=== PATIENT | male | born 1995 | race Two or more races ===

== ENCOUNTER 2016-10-31 17:12 | Emergency (ER) | payer OTHER, SELFPAY ==
[2016-10-31] MEDS ORDERED: ALBUTEROL SULFATE 2.5 MG/0.5 ML INH NEB SOLN NEB ONE (17:30)
[2016-10-31] MEDS ORDERED: NS 1,000 ML IV ONE (17:30)
[2016-10-31 17:43] LABS: BASO % 0.2 % (0.0-1.0); EOS # 0.2 K/mm3 (0.0-0.50); EOS % 1.7 % (0.0-3.0); LARGE UNSTAINED CELL # 0.2 K/mm3 (0.0-0.4); LARGE UNSTAINED CELL % 1.4 % (0.0-4.0); LYMPH % 28.3 % (24.0-44.0); MEAN CORPUSCULAR HEMOGLOBIN 32.1 pg (27.0-33.0); MEAN CORPUSCULAR HGB CONC 34.3 g/dl (32.0-36.5); MEAN CORPUSCULAR VOLUME 93.6 fl (80.0-96.0); MONO # 0.7 K/mm3 (0.0-0.8); MONO % 4.8 % (0.0-5.0); NEUTROPHILS % 63.6 % (36.0-66.0); PLATELET COUNT, AUTOMATED 300 k/mm3 (150-450); RED CELL DISTRIBUTION WIDTH 12.4 % (11.5-14.5); WHITE BLOOD COUNT 14.2 K/mm3 (4.0-10.0)
--- NOTE | 2016-10-31 18:00 | REPUSA ---
CLINICAL HISTORY: Syncope. TECHNIQUE: Multiple axial brain CT scan sections were obtained from base to vertex without contrast a dministration. COMMENTS: The study shows normal configuration of sella turcica. There are no intra or extra-axial collections. There is no mass effect or midline shift. There is no evidence of hematoma formation. No hydrocephal us is present. No abnormal calcifications are noted. No significant abnormalities are seen either in the posterior fossa or supratentorial compartment. The sinuses and mastoid air cells are patent. IMPRESSION: No evidence of acute intracranial pathology. Thank you for your kind referral of this patient.
[2016-10-31 18:12] LABS: ANION GAP 8 MEQ/L (8-16); BLOOD UREA NITROGEN 11 MG/DL (7-18); CALCIUM LEVEL 8.8 MG/DL (8.5-10.1); CARBON DIOXIDE LEVEL 26 MEQ/L (21-32); CHLORIDE LEVEL 106 MEQ/L (98-107); CREATININE FOR GFR 0.81 MG/DL (0.70-1.30); GLOMERULAR FILTRATION RATE > 60.0 (>60); GLUCOSE, FASTING 97 MG/DL (70-105); POTASSIUM SERUM 3.2 MEQ/L (3.5-5.1); SODIUM LEVEL 140 MEQ/L (136-145)
[2016-10-31 18:20] VITALS: BP 122/69
[2016-10-31] MEDS ORDERED: POTASSIUM CHLORIDE 10 MEQ SR TABLET PO ONE (18:45)
--- NOTE | 2016-11-01 08:07 | REP ---
CHEST, SINGLE VIEW: There is no evidence of acute infiltrate. No pleural effusion is seen. The heart is normal in size. The mediastinal silhouette is unremarkable. The visualized osseous structures are intact. IMPRESSION: No acute pulmonary disease. Signed by Jayden Lafleur MD 11/01/2016 12:21 P
--- NOTE | 2016-11-01 20:58 | ECGEPIP ---
Stationary ECG Study [facility] - ED Test Date: 2016-10-31 Pat Name: RICHARD HURT Department: Room: - Gender: M [employer]: ne : 1995 Requested By: EUSEBIO Paz Order Number: [id number] Reading MD: Dick Mahmood Measurements Intervals [place] Rate: 67 P: 44 NV: 167 QRS: 60 QRSD: 104 T: 47 QT: 366 QTc: 388 Interpretive Statements SINUS RHYTHM U WAVE NO OLD ECG FOR COMPARISON Electronically Signed On 11-01-2016 20:57:49 EDT by Dick Mahmood
== END 2016-10-31 18:56 | disposition home or self-care (01) ==
LOC: EDBD 17:12 → M ED 18:46
DX: R55 Syncope and collapse (principal); J45.909 Unspecified asthma, uncomplicated; F17.200 Nicotine dependence, unspecified, uncomplicated

== ENCOUNTER → 2017-08-03 | Outpatient (REF) | payer BC | LOC: M SFHCLERA 18:31 | DX: J02.9 Acute pharyngitis, unspecified (principal) ==

== ENCOUNTER → 2017-08-03 | Outpatient (CLI) | payer BC | LOC: M LRY 18:00 | DX: J02.9 Acute pharyngitis, unspecified (principal) ==

== ENCOUNTER 2018-01-17 08:16 | Emergency (ER) | payer OTHER, BC ==
[2018-01-17] MEDS: DERMABOND TOPICAL SKIN ADHESIVE TOP (09:00)
[2018-01-17] MEDS: PERCOCET 5MG/325MG TAB PO (09:25)
[2018-01-17] MEDS: ADACEL/BOOSTRIX VACCINE (DIPHTH/PERTUSS/ACELL/TETANUS)0.5ML SYR (90715) IM (09:27)
== END 2018-01-17 10:14 | disposition home or self-care (01) ==
LOC: M ED 08:16
DX: S51.811A Laceration without foreign body of right forearm, initial encounter (principal); W26.8XXA Contact with other sharp object(s), not elsewhere classified, initial encounter; Y92.89 Other specified places as the place of occurrence of the external cause; F17.210 Nicotine dependence, cigarettes, uncomplicated
CPT/HCPCS: 90715

== ENCOUNTER 2018-01-18 17:19 | Emergency (ER) | payer OTHER, BC ==
[2018-01-18] MEDS: BACTRIM 160MG/800MG DS TAB PO (18:38)
[2018-01-18] MEDS: NORCO, ANEXSIA 5/325MG TABLET (HYDROcodone/ACETAMINOPHEN) PO (18:38)
== END 2018-01-18 18:45 | disposition home or self-care (01) ==
LOC: M ED 17:19
DX: L08.9 Local infection of the skin and subcutaneous tissue, unspecified (principal); S51.811S Laceration without foreign body of right forearm, sequela; F17.210 Nicotine dependence, cigarettes, uncomplicated
CPT/HCPCS: 99282

== ENCOUNTER 2019-01-30 10:03 | Emergency (ER) | payer BC, OTHER ==
[~2019-01-30] VITALS: Ht 162.6 cm; Wt 74.4 kg
[~2019-01-30 10:03] MED LIST: BACT800T5 PO; HYDR-3715 PO; IBUP-1022 PO
[2019-01-30] MEDS ORDERED: LIDOCAINE 2% MDV 20 ML VIAL SC ONE (10:30)
[2019-01-30] MEDS ORDERED: ACETAMINOPHEN 500 MG TAB PO ONE (11:30)
[2019-01-30] MEDS ORDERED: KEFL500C17 PO (12:00)
[2019-01-30 12:04] VITALS: BP 123/78
[2019-01-30] MEDS ORDERED: NEOSPORIN OINT 0.9 GM PKT (FLOOR STOCK) TOP ONE (12:15)
--- NOTE | 2019-01-31 07:12 | REP ---
REASON: Pain after trauma. COMPARISON: None. There is a tiny volar plate fracture arising from the distal phalanx of the first digit. Electronically Signed by Dale Adam DO 01/31/2019 09:34 A
== END 2019-01-30 12:18 | disposition home or self-care (01) ==
LOC: M ED 10:03
DX: S62.521A Displaced fracture of distal phalanx of right thumb, initial encounter for closed fracture (principal); S61.011A Laceration without foreign body of right thumb without damage to nail, initial encounter; W26.8XXA Contact with other sharp object(s), not elsewhere classified, initial encounter; Y92.89 Other specified places as the place of occurrence of the external cause; Y99.0 Civilian activity done for income or pay; J45.909 Unspecified asthma, uncomplicated; F17.210 Nicotine dependence, cigarettes, uncomplicated

== ENCOUNTER 2020-02-29 17:14 | Emergency (ER) | payer OTHER ==
[~2020-02-29] VITALS: Ht 162.6 cm; Wt 68.0 kg
[~2020-02-29 17:14] MED LIST changes: +KEFL500C17 PO
[2020-02-29 17:17] VITALS: BP 164/96
== END 2020-02-29 18:09 | disposition home or self-care (01) ==
LOC: M ED 17:14
DX: F43.0 Acute stress reaction (principal)

== ENCOUNTER 2020-10-06 10:40 | Emergency (ER) | payer OTHER, SELFPAY ==
[~2020-10-06] VITALS: Ht 165.1 cm; Wt 74.7 kg
--- NOTE | 2020-10-06 11:09 | REP ---
INDICATION: TRAUMA. COMPARISON: None TECHNIQUE: Four views FINDINGS: No acute fracture or destructive osseous lesion. Bandage material is seen dressing a soft tissue defect along the lateral aspect of the distal 2nd digit. IMPRESSION: No osseous abnormality. <Electronically signed by Dale Adam > 10/06/20 [id number]
[2020-10-06] MEDS ORDERED: LIDOCAINE 2% MDV 20ML VIAL SC ONE (12:15)
[2020-10-06 13:19] VITALS: BP 142/80
== END 2020-10-06 13:40 | disposition home or self-care (01) ==
LOC: M ED 10:40
DX: S61.211A Laceration without foreign body of left index finger without damage to nail, initial encounter (principal); W26.8XXA Contact with other sharp object(s), not elsewhere classified, initial encounter; Y92.9 Unspecified place or not applicable; Y93.9 Activity, unspecified; Y99.0 Civilian activity done for income or pay

== ENCOUNTER 2021-02-18 13:05 | Emergency (ER) | payer SELFPAY ==
[~2021-02-18] VITALS: Ht 162.6 cm; Wt 67.2 kg
[2021-02-18 13:22] VITALS: BP 135/89
== END 2021-02-18 15:32 | disposition left against medical advice (07) ==
LOC: M ED 13:05
DX: Z53.21 Procedure and treatment not carried out due to patient leaving prior to being seen by health care provider (principal)

== ENCOUNTER 2022-02-18 10:01 | Emergency (ER) | payer OTHER, SELFPAY ==
[~2022-02-18] VITALS: Ht 165.1 cm; Wt 66.4 kg
[2022-02-18] MEDS ORDERED: ACETAMINOPHEN 500 MG TAB PO ONE (12:15)
[2022-02-18] MEDS ORDERED: LIDOCAINE 1% MDV 20ML VIAL SC ONE (12:25)
[2022-02-18] MEDS ORDERED: cefTRIAXone SOD 1GM VIAL (J0696 PER 250MG) IM ONE (13:20)
[2022-02-18] MEDS ORDERED: LIDOCAINE 1% SDV 5ML VIAL DILUENT ONE (13:20)
[2022-02-18] MEDS ORDERED: CEPH500C PO (13:30)
[2022-02-18] MEDS ORDERED: PERC5TAB12 PO (13:35)
[2022-02-18 13:44] VITALS: BP 132/79
== END 2022-02-18 14:14 | disposition home or self-care (01) ==
LOC: M ED 10:01
DX: S62.663B Nondisplaced fracture of distal phalanx of left middle finger, initial encounter for open fracture (principal); W23.0XXA Caught, crushed, jammed, or pinched between moving objects, initial encounter; J45.909 Unspecified asthma, uncomplicated; F17.200 Nicotine dependence, unspecified, uncomplicated
CPT/HCPCS: 12002; 73130; 96372; 99283; J0696

== ENCOUNTER → 2022-03-02 | Outpatient (CLI) | payer OTHER ==
[~2022-03-02] MED LIST changes: +CEPH500C PO; +PERC5TAB12 PO
== END ==
LOC: M SOG 09:29
PROVIDERS: ATTEND Orthopaedic Surgery
DX: S62.633B Displaced fracture of distal phalanx of left middle finger, initial encounter for open fracture (principal)

== ENCOUNTER → 2022-03-23 | Outpatient (CLI) | payer OTHER | LOC: M SOG 08:01 | PROVIDERS: ATTEND Orthopaedic Surgery | DX: S62.633D Displaced fracture of distal phalanx of left middle finger, subsequent encounter for fracture with routine healing (principal) ==

== ENCOUNTER → 2022-05-04 | Outpatient (CLI) | payer OTHER | LOC: M SOG 08:01 | PROVIDERS: ATTEND Orthopaedic Surgery | DX: S62.653D Nondisplaced fracture of middle phalanx of left middle finger, subsequent encounter for fracture with routine healing (principal); S67.193D Crushing injury of left middle finger, subsequent encounter ==